=== PATIENT | female | born 1985 | race Caucasian/White ===

== ENCOUNTER 2017-03-07 05:37 | Inpatient (IN) | payer OTHER ==
--- NOTE | 2017-03-04 17:05 | GHP ---
[f rep st] HISTORY AND PHYSICAL DATE OF ADMISSION: 03/07/2017 ADMITTING DIAGNOSES: 1. Intrauterine at 39-1/7 weeks' gestation. 2. Previous section. Declines a trial of labor. HISTORY OF PRESENT ILLNESS: Patient is a 32-year-old, 2, para 1-0-0-1 at 39-1/7 weeks with estimated due date 03/13/2017. This is by last menstrual period 06/15/2016, and consistent with first trimester ultrasound. She presents to labor and delivery with a history of a previous , declines a trial of labor. Patient is requesting a repeat at this time. States good movement. Denies any contractions, leakage of fluid or vaginal bleeding. The patient has had good care at [facility], and presented in her first trimester at 8 weeks. is complicated by previous secondary to failed induction of labor. She had premature rupture of membranes at 37 weeks. The patient did get genetic testing don and all negative. A 20-week ultrasound was normal. The patient did receive both the Tdap and flu vaccine in the . There was no anemia of . GBS culture is negative. PAST OBSTETRICAL HISTORY: In September 2014, she delivered a viable male at 37 weeks, weighing 6 pounds 14 ounces by secondary to failed induction. She had premature rupture of membranes and chorio. GYNECOLOGIC HISTORY: Age of menarche 14. Cycles are every 25 days for 3-5 days. Last menstrual period 06/06/2016. Positive test 07/01/2016. The patient does have history of abnormal Pap smear 5-6 years ago with no treatment. Re-Pap has been negative. The patient denies a history of exposure to sexually transmitted diseases. The patient has a history of OCP use. 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 HOME MEDICATIONS: vitamins, DHA. ALLERGIES: No known drug allergies. PAST MEDICAL HISTORY: Unremarkable. PAST SURGICAL HISTORY: in 2014, wisdom teeth extraction. FAMILY HISTORY: Unremarkable. SOCIAL HISTORY: Patient is . She lives with her and her son. 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 Denies any alcohol, tobacco, or illicit drug use. LABS: Blood type O positive, antibody negative, rubella immune, RPR nonreactive, hepatitis B surface antigen negative. HIV negative. Trio screen is all negative in 2015. TSH 0.686. Urine culture negative. Pap test, gonorrhea, chlamydia cultures all negative. Quad screen negative. H and H 13.2 and 39. One-hour Glucola 114. GBS culture was negative. PHYSICAL EXAMINATION: VITAL SIGNS: On admission, vital signs are stable. Patient is afebrile. GENERAL: Well-nourished, well-developed female, alert and oriented x3. No apparent distress. CARDIOVASCULAR: Regular rate and rhythm. LUNGS: Clear to auscultation bilaterally. ABDOMEN: Gravid, soft, nontender, nondistended. PELVIC: Exam deferred. EXTREMITIES: Normal to inspection, without calf tenderness or edema. ASSESSMENT: The patient is a 32-year-old, 2, para 1-0-0-1 at 39-1/7 weeks, with a previous section, declines a trial of labor. 1. Admit to labor and delivery for repeat section. 2. Surgical consents were obtained in the office. Discussed the risks, benefits, alternatives of the procedure including but not limited to, bleeding, infection, damage to surrounding organs. Patient understands all risks of the surgery and wants to proceed at this time. 3. Antibiotics on-call to OR. 4. SCDs for DVT prophylaxis. /[id number]/MODL CHERYL
[2017-03-07] MEDS ORDERED: ceFAZolin 2 GM/DEXTROSE 100 ML IV ONE ×2 (06:17→13:22)
[2017-03-07] MEDS ORDERED: LR 500 ML IV ONE ×2 (06:17→13:22)
[2017-03-07] MEDS ORDERED: CITRIC ACID/SODIUM CITRATE 30 ML UDCUP PO ONE ×3 (06:17→13:22)
[2017-03-07 06:27] LABS: % IMMATURE GRANULYOCYTES 1.9 % (0.0-1.1); ABSOLUTE IMMATURE GRANULOCYTES 0.19 10^3/uL (0.00-0.10); ADD DIFF? NO; ADD MORPH? NO; ADD SCAN? NO; ATYPICAL LYMPHOCYTE FLAG 0 (0-99); FRAGMENT RBC FLAG 0 (0-99); HEMATOCRIT 39.7 % (38.0-47.0); LEFT SHIFT FLG 10 (0-99); LIPEMIA HEMOLYSIS FLAG 90 (0-99); MEAN CELL HEMOGLOBIN 31.9 pg (27.9-34.1); MEAN CELL HEMOGLOBIN CONCENTR. 35.3 g/dL (32.4-36.7); MEAN CELL VOLUME 90.4 fL (81.5-99.8); MEAN PLATELET VOLUME 12.4 fL (8.7-11.7); PLATELET CLUMPS FLAG 0 (0-99); PLATELET COUNT 144 10^3/uL (150-400); RED BLOOD CELL COUNT 4.39 10^6/uL (4.18-5.33); RED CELL DISTRIBUTION WIDTH 13.4 % (11.5-15.2)
[2017-03-07] MEDS ORDERED: LR 1,000 ML IV SCH ×2 (06:30→13:22)
[2017-03-07] MEDS ORDERED: METOCLOPRAMIDE 10 MG/2 ML VIAL IVP ONE (07:15)
[2017-03-07] MEDS ORDERED: FAMOTIDINE 20 MG/NACL 50 ML IV ONE (07:15)
[2017-03-07] MEDS ORDERED: BUPIVACAINE/DEXTROSE 7.5MG/ML 2 ML SPINAL AMP SP ONE (07:33)
[2017-03-07] MEDS ORDERED: ONDANSETRON 4 MG/2 ML VIAL ONE ×2 (07:34→08:38)
[2017-03-07] MEDS ORDERED: PHENYLEPHRINE HCL 100 MCG/ML SYR ONE ×2 (07:34→08:39)
[2017-03-07] MEDS ORDERED: DEXAMETHASONE 4 MG/ML VIAL ONE (07:34)
[2017-03-07] MEDS ORDERED: KETOROLAC 30 MG/1 ML SDV ONE (07:34)
[2017-03-07] MEDS ORDERED: OXYTOCIN 100 UNITS/10 ML VIAL ONE (07:34)
[2017-03-07] MEDS ORDERED: morphINE PF 5 MG/10 ML INJ ONE (07:37)
--- NOTE | 2017-03-07 07:46 | PREANESOB ---
Obstetric Pre-Anesthesia Info - General Info Proposed Procedure: rc/s : 2 Para: 1 HELADIO: 03/13/17 Gestational Age: 39 week(s) and 1 day(s) - Labor Status Section History: Repeat Anesthesia Allergies/Adverse Reactions: Allergy/AdvReac Type Severity Reaction Status Date / Time No Known Allergies Allergy Unverified 10/18/14 14:17 Home Medications: Medication Instructions Recorded Pnv Combo#14/Fe/FA #1/Dha/Abdon 10/18/14 Hydrocodone/APAP 5/325 [[place] 1 - 2 tab PO Q4 PRN #30 tab 10/22/14 5/325 (*)] Ibuprofen [Motrin (*)] 600 mg PO Q6 PRN #30 tab 10/22/14 Iron Polysacch/Iron Heme Polyp 28 mg PO DAILY #30 tab 10/22/14 [Bifera] Visit Medications: Generic Name Dose Route Start Last Admin Trade Name Freq PRN Reason Stop Dose Admin Lactated Ringer's 1,000 mls @ 125 mls/hr 03/07/17 06:30 Lr IV 03/08/17 06:29 CONT NICOLASA Discontinued Medications Generic Name Dose Route Start Last Admin Trade Name Freq PRN Reason Stop Dose Admin Bupivacaine HCl/Dextrose Confirm 03/07/17 07:33 Marcaine Spinal Administered 03/07/17 07:34 Dose 2 ml SP .STK-MED ONE Citric Acid/Sodium Citrate 30 ml 03/07/17 06:17 Bicitra PO 03/07/17 06:18 ONCALL ONE Citric Acid/Sodium Citrate 30 ml 03/07/17 07:15 Bicitra PO 03/07/17 07:16 ONCE ONE Dexamethasone Confirm 03/07/17 07:34 Decadron Injection Administered 03/07/17 07:35 Dose 4 mg .ROUTE .STK-MED ONE Cefazolin Sodium/Dextrose 100 mls @ 200 mls/hr 03/07/17 06:17 03/07/17 07:40 Ancef 2 Gm (Premix) IV 03/07/17 06:46 100 mls ONCALL ONE Administration Protocol Lactated Ringer's 500 mls @ 0 mls/hr 03/07/17 06:17 03/07/17 07:00 Lr IV 03/07/17 06:18 500 mls ONCE ONE Administration As Directed Famotidine/Sodium Chloride 50 mls @ 200 mls/hr 03/07/17 07:15 Pepcid 20 Mg (Premix) IV 03/07/17 07:29 ONCE ONE Ketorolac Tromethamine Confirm 03/07/17 07:34 Toradol Administered 03/07/17 07:35 Dose 30 mg .ROUTE .STK-MED ONE Metoclopramide HCl 10 mg 03/07/17 07:15 Reglan Injection IVP 03/07/17 07:16 ONCE ONE Morphine Sulfate Confirm 03/07/17 07:37 Morphine Pf 5 Mg/10 Ml Administered 03/07/17 07:38 Dose 5 mg .ROUTE .STK-MED ONE Ondansetron HCl Confirm 03/07/17 07:34 Zofran Administered 03/07/17 07:35 Dose 4 mg .ROUTE .STK-MED ONE Oxytocin Confirm 03/07/17 07:34 Pitocin Administered 03/07/17 07:35 Dose 100 units .ROUTE .STK-MED ONE Phenylephrine HCl Confirm 03/07/17 07:34 Neosynephrine Administered 03/07/17 07:35 Dose 1,000 mcg .ROUTE .STK-MED ONE - Vital Signs Latest Vital Signs (Nursing): Temp Pulse Resp BP Pulse Ox 37.5 C 80 16 107/69 96 03/07/17 06:16 03/07/17 06:16 03/07/17 06:16 03/07/17 06:16 03/07/17 06:16 Height/Weight (Nursing): Height 162.56 cm Weight 62.596 kg Labs: 03/07/17 06:10 Patient ABO/Rh O POSITIVE 03/07/17 06:10
--- NOTE | 2017-03-07 07:47 | PDANEPAE ---
ANE History of Present Illness rc/s ANE Past Medical History - Cardiovascular History Hx Hypertension: No Hx Arrhythmias: No - Pulmonary History Hx COPD: No Hx Sleep Apnea: No Sleep Apnea Screening Result - Last Documented: Negative - Endocrine History Hx Diabetes: No - Renal History Hx Renal Disorders: No - Liver History Hx Hepatic Disorders: No - Chronic Pain History Chronic Pain: No ANE Review of Systems Review of Systems: - Exercise capacity METS (RN): 4 METS ANE Patient History - Allergies Allergies/Adverse Reactions: No Known Allergies Allergy (Unverified 10/18/14 14:17) - Home Medications Home Medications: Pnv Combo#14/Fe/FA #1/Dha/Abdon 10/18/14 [Last Taken 10/18/14 07:00 1] - NPO status NPO Since - Liquids (Date): 03/07/17 NPO Since - Liquids (Time): 03:00 NPO Since - Solids (Date): 03/06/17 NPO Since - Solids (Time): 19:00 - Anes Hx Anes Hx: post operative nausea and vomiting - Smoking Hx Smoking Status: Never smoked ANE Labs/Vital Signs - Labs Result Diagrams: 03/07/17 06:10 - Vital Signs Blood Pressure: 107/69 Heart Rate: 80 Respiratory Rate: 16 O2 Sat (%): 96 Height: 162.56 cm Weight: 62.596 kg ANE Physical Exam - Airway Mallampati Score: Class 2 Mouth exam: normal dental/mouth exam - Pulmonary Pulmonary: no respiratory distress - Cardiovascular Cardiovascular: regular rate and rhythym - ASA Status ASA Status: II ANE Anesthesia Plan Anesthesia Plan: spinal
[2017-03-07] MEDS ORDERED: fentaNYL 100 MCG/2 ML INJ IVP PRN (08:27)
[2017-03-07] MEDS ORDERED: PHENYLEPHRINE HCL 100 MCG/ML SYR IVP PRN (08:27)
[2017-03-07] MEDS ORDERED: ONDANSETRON 4 MG/2 ML VIAL IVP PRN (08:27)
[2017-03-07] MEDS ORDERED: MEPERIDINE 25 MG/ML SYR IVP PRN (08:27)
[2017-03-07] MEDS ORDERED: NALOXONE HCL 0.4 MG/ML INJ IVP PRN (08:27)
[2017-03-07] MEDS ORDERED: HYDROmorphONE/DILAUDID 1 MG/ML INJ IVP PRN (08:27)
[2017-03-07] MEDS ORDERED: epHEDrine SULFATE 10 MG/ML SYR ONE (08:35)
--- NOTE | 2017-03-07 09:03 | POSTANESTH ---
Post Anesthetic Evaluation Cardiovascular Status: Normal, Stable Respiratory Status: Normal, Stable Level of Consciousness/Mental Status: Can Participate in Eval Pain Control: Adequate, Prn Tx Ordered Nausea/Vomiting Control: Adequate, Prn Tx Ordered Complications Possibly Related to Anesthesia: None Noted
[2017-03-07] MEDS ORDERED: DOCUSATE SODIUM 100 MG CAP PO PRN (09:08)
[2017-03-07] MEDS ORDERED: MAGNESIUM HYDROXIDE 30 ML UDCUP PO PRN (09:08)
[2017-03-07] MEDS ORDERED: HYDROCODONE/APAP 5/325 TAB PO PRN (09:08)
[2017-03-07] MEDS ORDERED: POLYETHYLENE GLYCOL 3350 17 GM PKT PO PRN (09:08)
[2017-03-07] MEDS ORDERED: PROMETHAZINE HCL 25 MG/ML INJ IVP PRN (09:08)
[2017-03-07] MEDS ORDERED: SIMETHICONE 80 MG TAB CHEW PO PRN (09:08)
[2017-03-07] MEDS ORDERED: LACTULOSE 20 GM/30 ML UDCUP PO PRN (09:08)
[2017-03-07] MEDS ORDERED: BISACODYL 10 MG SUPP PR PRN (09:08)
--- NOTE | 2017-03-07 09:11 | OBDEL ---
Info Type: Repeat Presentation at Delivery: Vertex L&D Analgesia/Anesthesia Type: Spinal GBS+: No Intrapartum Medications: Discontinued Medications Generic Name Dose Route Start Last Admin Trade Name Molina PRN Reason Stop Dose Admin Cefazolin Sodium/Dextrose 100 mls @ 200 mls/hr 03/07/17 06:17 03/07/17 07:40 Ancef 2 Gm (Premix) IV 03/07/17 06:46 100 mls ONCALL ONE Administration Protocol Lactated Ringer's 500 mls @ 0 mls/hr 03/07/17 06:17 03/07/17 07:00 Lr IV 03/07/17 06:18 500 mls ONCE ONE Administration As Directed Famotidine/Sodium Chloride 50 mls @ 200 mls/hr 03/07/17 07:15 03/07/17 07:44 Pepcid 20 Mg (Premix) IV 03/07/17 07:29 50 mls ONCE ONE Administration Indications for Delivery: Elective (Prior c/s) Operative Report - Delivery Pre-op Diagnoses: IUP @ 39 1/7 weeks with prior c/s, declines trial of labor. Post-op Diagnoses: IUP @ 39 1/7 weeks with prior c/s, declines trial of labor. History of Prior Section: Yes Number of Prior Sections: 1 Indications for Prior Section: Other (Specify) (failed IOL) Indications for Current Section: Elective/Repeat Procedure: Scheduled, Low Transverse Surgeon: Alicia Miller Aerobics Instructor: Krupa Leo (Kavita Moore [facility]) Anesthesiologist: Jona Edouard Complications: None Findings: A viable male born at 0820 with 8 and 9 Apgars in cephalic presentation. Delayed cord clamping x 60 sec. Cord blood obtained. Placenta delivered spontaneously intact with 3-vc. Grossly normal appearing uterus, tubes and ovaries. Specimen(s)/Path: Other (Specify) (none) IV Fluid (ml): 1,000 EBL: 800 cc UO: 50 cc clear urine Drains: Matt Pollock [place] Data HELADIO: 03/13/17 Gestational Age: 39 week(s) and 1 day(s) Lopez Delivery Date: 03/07/17 Delivery Time: 08:20 Sex of Infant: Male Score (1 Min): 8 Score (5 Min): 9 ICD10 Worksheet Patient Problems: Problems Problem Status Onset Previous section complicating Acute Status post repeat low transverse section Acute - ICD10 Problem Qualifiers (1) Previous section complicating (2) Status post repeat low transverse section
[2017-03-07] MEDS: KETOROLAC 30 MG/1 ML SDV IVP SCH ×2 (14:55→21:41)
--- NOTE | 2017-03-07 19:26 | GOP ---
[f rep st] OPERATIVE REPORT DATE OF OPERATION: 03/07/2017 SURGEON: Alicia Miller DO HAT DESIGNER: Krupa Leo CNM, Naye Moore, ANESTHETIST. ANESTHESIA: Spinal. ANESTHESIOLOGIST: Jona Edouard MD PREOPERATIVE DIAGNOSIS: Intrauterine at 39-1/7 weeks' gestation. History of a prior low transverse section. Declines trial of labor. Desires repeat . POSTOPERATIVE DIAGNOSIS: Intrauterine at 39-1/7 weeks' gestation. History of a prior low transverse section. Declines trial of labor. Desires repeat . PROCEDURE PERFORMED: Repeat low transverse section. FINDINGS: A viable male infant, born at 0820 in cephalic presentation, with 8 and 9 Apgars. Delayed cord clamping x60 seconds. Cord blood was obtained. Placenta delivered spontaneously intact with 3-vessel cord. Grossly normal- appearing uterus, tubes, and ovaries bilaterally. ESTIMATED BLOOD LOSS: 800 cc. INDICATIONS: The patient is a 32-year-old, 2, para 1-0-0-1, at 39-1/7 weeks, with estimated due date 03/13/2017, with a history of a prior secondary to failed induction, declines trial of labor. Request for repeat C- section at this time. We discussed risks, benefits, alternatives of procedure including, but not limited to, bleeding, infection, and damage to surrounding organs. Patient understands all risks at this time and wants to proceed with surgery. Patient was properly consented. DESCRIPTION OF PROCEDURE: Patient was taken to the operating room where she was given spinal anesthesia without difficulty. She was then prepped and draped in the usual sterile manner and placed in supine position with leftward tilt. Edagr catheter was placed in her bladder. After adequate anesthesia was assured, Pfannenstiel skin incision was made at the previous scar. The incision was carried down to underlying fascia with the Bovie. Fascia was then incised in the midline. Fascial incision was extended laterally with Oliva scissors. Superior aspect of fascial incision was grasped with Jah clamps, elevated, and rectus muscles dissected off sharply. Inferior aspect of the fascial incision was then grasped with Jah clamps, elevated, and rectus muscles dissected off sharply. Rectus muscles were then in the midline. Peritoneum was visualized, entered bluntly and extended superiorly and inferiorly, with good visualization of the bladder. Bladder blade was then inserted. The vesicouterine peritoneum was then grasped with pickups, entered sharply with Metzenbaum scissors. Incision was then carried laterally and bladder flap created digitally. Bladder blade was then reinserted. A low- transverse uterine incision was then made with a knife. Incision was extended anteriorly and posterior digitally. There was clear amniotic fluid noted upon entry to the amnionic sac. Baby boy was then delivered in cephalic presentation without difficulty. Mouth and nose were bulb suctioned. We delayed cord clamping x1 minute. Cord was then clamped x2 and cut. handed off to awaiting nurse practitioner. Cord blood was obtained and sent. Placenta was then removed spontaneously intact with 3-vessel cord. Uterus was then exteriorized, and cleared of all clots and debris. Uterine incision then repaired with 0 Vicryl in a running, locked fashion. Hemostasis was noted. A 2nd imbricating layer of suture was then performed with 0 Vicryl. Hemostasis was noted. Uterus was returned to the abdomen. The gutters were cleared of all clots and debris. Reinspection of the uterine incision revealed some oozing. Surgical Azar was placed and hemostasis was achieved. The rectus muscles were then reapproximated with 2-0 Vicryl in an inverted mattress fashion. The fascia was then closed with 0 Vicryl in a running fashion. Hemostasis was noted. Skin was then closed with 4-0 Vicryl on a Aditya needle. Patient tolerated procedure well. No complications. Sponge, lap, needle, and instrument counts correct x2. Patient was then taken to recovery room in stable condition. IV FLUIDS: 1000 cc LR. URINE OUTPUT: 50 cc of clear urine at end of procedure. /[id number]/MODL MTDD
[2017-03-08] MEDS: KETOROLAC 30 MG/1 ML SDV IVP SCH ×2 (06:06→18:34)
[2017-03-08] MEDS: SENNOSIDES/DOCUSATE SODIUM TAB PO SCH ×3 (06:08→23:05)
[2017-03-08] MEDS: IRON POLYSAC/IRON HEME 28 MG TAB PO SCH (08:55)
[2017-03-08] MEDS: IBUPROFEN 600 MG TAB PO PRN ×3 (10:55→23:05)
--- NOTE | 2017-03-08 18:01 | OBPP ---
Progress Note Assessment/Plan: Assessment: 32 y/o POD #1 s/p Rpt LTCS doing well. Plan: Routine POC. D/c home tomorrow. 03/08/17 18:00 Subjective/ Course: 03/08/17 17:59 Pt is doing well today. She has good pain control with just PO Ibuprofen. She is ambulating, and voiding without difficulty and baby is doing well. Breast feeding is going well. She will be ready to d/c home tomorrow. Objective: 03/08/17 04:30 Patient ABO/Rh O POSITIVE 03/07/17 06:10 Temp Pulse Resp BP Pulse Ox 36.2 C 81 17 90/56 L 95 03/08/17 16:00 03/08/17 16:00 03/08/17 16:00 03/08/17 16:00 03/08/17 16:00 Uterine Position/Fundal Height: Umbilicus -3 Uterine Tone: Firm Physical Exam - Physical Exam Neck: non-tender, full range of motion, supple Respiratory: chest non-tender, lungs clear, normal breath sounds Cardiac/Chest: regular rate, rhythm Abdomen: normal bowel sounds, incision (c/d/i) Extremities: swelling (no), Aimee's sign (neg)
[2017-03-09] MEDS: IBUPROFEN 600 MG TAB PO PRN ×2 (05:08→11:03)
[2017-03-09 08:28] VITALS: BP 96/63; PULSE 89; RESP 17; TEMP 97.9; O2SAT 99
[2017-03-09] MEDS: IRON POLYSAC/IRON HEME 28 MG TAB PO SCH (08:46)
[2017-03-09] MEDS: SENNOSIDES/DOCUSATE SODIUM TAB PO SCH (08:46)
--- NOTE | 2017-03-09 09:38 | OBPP ---
Progress Note Assessment/Plan: Assessment: pod# 2 s/p RLTCS uncomplicated post operative and post course breast feeding anemia Plan: routine post operative and post care iron 03/09/17 09:33 Subjective/ Course: 03/08/17 17:59 Pt is doing well today. She has good pain control with just PO Ibuprofen. She is ambulating, and voiding without difficulty and baby is doing well. Breast feeding is going well. She will be ready to d/c home tomorrow. 03/09/17 09:38 patient is doing greatl. pain is well controlled with ibuprofen! denies headache and changes in vision. breast feeding is going well. ambulating. passing gas. voiding without difficulty. Objective: 03/08/17 04:30 Patient ABO/Rh O POSITIVE 03/07/17 06:10 Temp Pulse Resp BP Pulse Ox 36.6 C 89 17 96/63 L 99 03/09/17 08:00 03/09/17 08:00 03/09/17 08:00 03/09/17 08:00 03/09/17 08:00 Uterine Position/Fundal Height: Umbilicus -2 Uterine Tone: Firm Physical Exam - Physical Exam Neck: non-tender, full range of motion, supple Respiratory: chest non-tender, lungs clear, normal breath sounds Cardiac/Chest: normal peripheral pulses, regular rate, rhythm Abdomen: normal bowel sounds, non-tender Extremities: normal range of motion, non-tender, normal inspection, normal capillary refill Skin: normal color, warm/dry Neuro/Psych: no motor/sensory deficits, alert, normal mood/affect, oriented x 3
--- NOTE | 2017-03-09 09:44 | OBGCSDC ---
General Delivery Information - General Info : 2 Para: 1 Abortions: 0 Type: Repeat L&D Analgesia/Anesthesia Type: Spinal Admission Date: 03/07/17 Labs: Patient ABO/Rh O POSITIVE 03/07/17 06:10 Hct 32.5 % (38.0-47.0) L 03/08/17 04:30 - Hospital Course Antepartum: 03/09/17 09:41 uncomplicated . declines trail of labor. : 03/08/17 17:59 Pt is doing well today. She has good pain control with just PO Ibuprofen. She is ambulating, and voiding without difficulty and baby is doing well. Breast feeding is going well. She will be ready to d/c home tomorrow. 03/09/17 09:38 patient is doing greatl. pain is well controlled with ibuprofen! denies headache and changes in vision. breast feeding is going well. ambulating. passing gas. voiding without difficulty. - Delivery Providers Surgeon: Alicia Miller Ebd Special Education Teacher: Krupa Leo (Kavita Moore [facility]) Anesthesiologist: Jona Edouard - Delivery Number of Prior Sections: 1 Indications for Current Section: Elective/Repeat Surgical Procedures: Scheduled, Low Transverse Intra-op Complications: None EBL: 800 cc UO: 50 cc clear urine [place] Data HELADIO: 03/13/17 Gestational Age: 39 week(s) and 3 day(s) Lopez Delivery Date: 03/07/17 Delivery Time: 08:20 Sex of Infant: Male Score (1 Min): 8 Score (5 Min): 9 Discharge Information - Discharge Information Prescriptions: Hydrocodone/APAP 5/325 [[place] 5/325 (*)] 1 - 2 tab PO Q4HRS PRN #5 tab PRN Reason: Pain, Moderate Ibuprofen [Motrin (*)] 600 mg PO Q6HRS PRN #30 tab PRN Reason: Inflammation Condition: Good Instruction/Follow Up: Two Weeks, Four Weeks, Six Weeks
== END 2017-03-09 13:30 | disposition home or self-care (01) | DRG 766 ==
LOC: FLD 05:37 → FOB 11:26
PROVIDERS: ADMIT Obstetrics & Gynecology; ATTEND Obstetrics & Gynecology
PROC: 10D00Z1 Extraction of Products of Conception, Low, Open Approach (ICD-10-PCS; principal; 2017-03-07)
DX: O34.211 Maternal care for low transverse scar from previous cesarean delivery (principal); Z37.0 Single live birth; Z3A.39 39 weeks gestation of pregnancy
CPT/HCPCS: J0690; J1100; J1885; J2274; J2370; J2405; J2550; J2590